=== PATIENT | female | born 1970 | race Caucasian/White ===

== ENCOUNTER 2016-12-20 07:16 | Emergency (ER) | payer MEDICAID ==
[~2016-12-20] VITALS: Ht 165.1 cm; Wt 96.8 kg
[2016-12-20] MEDS ORDERED: SODIUM CHLORIDE FLUSH 10ML SYR IVF ONE (08:00)
[2016-12-20] MEDS ORDERED: SODIUM CHLORIDE 0.9% 1,000ML IV ONE (08:00)
[2016-12-20] MEDS ORDERED: ONDANSETRON 2MG/ML, 2ML IVPush ONE (08:00)
[2016-12-20] MEDS ORDERED: MORPHINE SULFATE 4 MG/ML, 1ML IVPush PRN (08:00)
[2016-12-20 08:31] LABS: BLOOD UREA NITROGEN 10 mg/dL (7-18)
[2016-12-20] MEDS ORDERED: ONDANSETRON 2MG/ML, 2ML ONE (08:44)
[2016-12-20] MEDS ORDERED: MORPHINE SULFATE 4 MG/ML, 1ML ONE (08:44)
[2016-12-20] MEDS ORDERED: OMNIPAQUE 350 MG/ML, 100ML BOTTLE ONE (09:26)
[2016-12-20 09:50] VITALS: BP 126/68
== END 2016-12-20 10:54 | disposition home or self-care (01) ==
LOC: ED 08:21
DX: D17.0 Benign lipomatous neoplasm of skin and subcutaneous tissue of head, face and neck (principal)
CPT/HCPCS: 36415; 70491; 80048; 82040; 85025; 96361; 96374; 96375; 99285; J2405; J7030; Q9967